=== PATIENT | female | born 1975 | race American Indian/Alaskan Native ===

== ENCOUNTER 2017-07-18 00:21 | Emergency (ER) | payer MEDICARE ==
[2017-07-18 00:48] VITALS: BP 106/55
--- NOTE | 2017-07-18 03:27 | Emergency Department Report ---
ED Upper Extremity Inj HPI - General Chief Complaint: Extremity Injury, Upper Stated Complaint: RT SHOULDER PAIN Time Seen by Provider: 07/18/17 02:52 Source: patient Mode of arrival: Ambulatory Limitations: No Limitations - History of Present Illness Initial Comments: pt patient is a 42-year-old -[place] Henry shabazz who presents with complaint of right shoulder pain 5 days as to do the same thing at work and acute strain him a shoulder patient denies fall injury of trauma no swelling weakness or paralysis no numbness pain described as 5/10 aching pain is exacerbated by movement pain is relieved by rest there are no other symptoms. - Related Data Previous Rx's Medication Instructions Recorded Last Taken Type Cyclobenzaprine [Flexeril] 10 mg PO BID PRN #20 tablet 07/18/17 Unknown Rx Menthol/Camphor [Milton Lopez 1 applicator TP BID PRN #1 tube 07/18/17 Unknown Rx Ointment] Naproxen 500 mg PO BID PRN #30 tablet 07/18/17 Unknown Rx Allergies Allergy/AdvReac Type Severity Reaction Status Date / Time No Known Allergies Allergy Verified 07/18/17 00:34 ED Review of Systems ROS: Stated complaint: RT SHOULDER PAIN Other details as noted in HPI Constitutional: denies: chills, fever Eyes: denies: eye pain, eye discharge, vision change ENT: denies: ear pain, throat pain Respiratory: denies: cough, shortness of breath, wheezing Cardiovascular: denies: chest pain, palpitations Endocrine: no symptoms reported Gastrointestinal: denies: abdominal pain, nausea, diarrhea Genitourinary: denies: urgency, dysuria, discharge Musculoskeletal: arthralgia, myalgia. denies: back pain, joint swelling Skin: denies: rash, lesions Neurological: denies: headache, weakness, paresthesias Psychiatric: denies: anxiety, depression Hematological/Lymphatic: as per HPI ED Past Medical Hx - Past Medical History Previous Medical History?: Yes Hx Asthma: Yes - Surgical History Past Surgical History?: Yes Additional Surgical History: C-Sec x 3 - Social History Smoking Status: Never Smoker Substance Use Type: None - Medications Home Medications: Home Medications Medication Instructions Recorded Confirmed Last Taken Type Cyclobenzaprine [Flexeril] 10 mg PO BID PRN #20 tablet 07/18/17 Unknown Rx Menthol/Camphor [Milton Lopez 1 applicator TP BID PRN #1 tube 07/18/17 Unknown Rx Ointment] Naproxen 500 mg PO BID PRN #30 tablet 07/18/17 Unknown Rx ED Physical Exam - General Limitations: No Limitations General appearance: alert, in no apparent distress - Head Head exam: Present: atraumatic, normocephalic - Eye Eye exam: Present: normal appearance - ENT ENT exam: Present: mucous membranes moist - Neck Neck exam: Present: normal inspection - Respiratory Respiratory exam: Present: normal lung sounds bilaterally. Absent: respiratory distress - Cardiovascular Cardiovascular Exam: Present: regular rate, normal rhythm. Absent: systolic murmur, diastolic murmur, rubs, gallop - GI/Abdominal GI/Abdominal exam: Present: soft, normal bowel sounds - Rectal Rectal exam: Present: deferred - Extremities Exam Extremities exam: Present: normal inspection, full ROM, tenderness (right posterior lateral shoulder muscular tenderness ), normal capillary refill, calf tenderness. Absent: joint swelling - Expanded Upper Extremity Exam Right Shoulder Exam: Present: normal inspection, full ROM, tenderness (right posterior lateral tenderness to deep palpaton rom intact open can and shoulder drop rad pulses +2, bilat piping drafter equal 5/5 bilat ). Absent: swelling, abrasion, laceration, ecchymosis, deformity, crepidus, dislocation, erythema, tenderness over AC joint Upper Arm exam: Present: normal inspection, full ROM Elbow exam: Present: normal inspection, full ROM Forearm Wrist exam: Present: normal inspection, full ROM Hand Wrist exam: Present: normal inspection, full ROM Neuro motor exam: Present: wrist extension intact, thumb opposition intact, thumb IP flexion intact, thumb adduction intact, fingers 2-5 abduction intact Neurosensory exam: Present: 2-point discrimination, radial nerve intact, ulnar nerve intact, median nerve intact Vascular: Present: vascular compromise, normal capillary refill, radial pulse, brachial pulse, ulnar pulse. Absent: Pallo, pulse deficit radial art - Back Exam Back exam: Present: normal inspection, full ROM. Absent: tenderness, CVA tenderness (R), CVA tenderness (L), muscle spasm, paraspinal tenderness, vertebral tenderness - Neurological Exam Neurological exam: Present: alert, oriented X3, CN II-XII intact, normal gait, reflexes normal. Absent: motor sensory deficit - Psychiatric Psychiatric exam: Present: normal affect, normal mood - Skin Skin exam: Present: warm, dry, intact, normal color. Absent: rash ED Course Vital Signs 07/18/17 00:34 Temperature 98.8 F Pulse Rate 88 Respiratory 18 Rate Blood Pressure 106/55 [Right] O2 Sat by Pulse 100 Oximetry ED Medical Decision Making - Medical Decision Making pt patient is a 42-year-old -[place] Henry shabazz who presents with complaint of right shoulder pain 5 days as to do the same thing at work and acute strain him a shoulder patient denies fall injury of trauma no swelling weakness or paralysis no numbness pain described as 5/10 aching pain is exacerbated by movement pain is relieved by rest there are no other symptoms. exam: pt appears well nad, nontoxic shoulder exam strength 5/5 open shoulder drop intact , piping drafter equal 5/5 rom unrestricted, plan: tx for shoulder strain nsaids, muscle relaxant, tiger balm moist heat therapy, and shoulder exercises discuss same with patient , patient verbalized agreement and understanding with same. Critical care attestation.: If time is entered above; I have spent that time in minutes in the direct care of this critically ill patient, excluding procedure time. ED Disposition Clinical Impression: Right shoulder strain Qualifiers: Encounter type: initial encounter Qualified Code(s): S46.911A - Strain of unspecified muscle, fascia and tendon at shoulder and upper arm level, right arm , initial encounter Disposition: - TO HOME OR SELFCARE Is pt being admited?: No Does the pt Need Aspirin: No Condition: Good Instructions: Musculoskeletal Pain (ED) Prescriptions: Cyclobenzaprine [Flexeril] 10 mg PO BID PRN #20 tablet PRN Reason: Muscle Spasm Menthol/Camphor [Milton Lopez Ointment] 1 applicator TP BID PRN #1 tube PRN Reason: Pain Naproxen 500 mg PO BID PRN #30 tablet PRN Reason: Pain Referrals: ASAD CLARK MD [Primary Care Provider] - 3-5 Days Forms: Work/School Release Form(ED) Time of Disposition: 03:31
== END 2017-07-18 03:35 | disposition home or self-care (01) ==
LOC: ED 00:21
DX: S46.911A Strain of unspecified muscle, fascia and tendon at shoulder and upper arm level, right arm, initial encounter (principal); J45.909 Unspecified asthma, uncomplicated; X58.XXXA Exposure to other specified factors, initial encounter; Y93.89 Activity, other specified; Y92.89 Other specified places as the place of occurrence of the external cause; Y99.8 Other external cause status
CPT/HCPCS: 99282

== ENCOUNTER 2018-04-21 03:53 | Emergency (ER) | payer MEDICARE ==
[2018-04-21] MEDS ORDERED: TYLENOL ONE (05:30)
[2018-04-21] MEDS ORDERED: TYLENOL PO ONE (05:36)
[2018-04-21 06:42] LABS: Basophils # (Auto) 0.1 K/mm3 (0.0-0.1); Basophils % (Auto) 0.9 % (0.0-1.8); Eosinophils # (Auto) 0.1 K/mm3 (0.0-0.4); Hematocrit 27.7 % (30.3-42.9); Hemoglobin 8.3 gm/dl (10.1-14.3); Lymphocytes # (Auto) 1.6 K/mm3 (1.2-5.4); Lymphocytes % (Auto) 26.4 % (13.4-35.0); Mean Corpuscular HGB Conc 30 % (30-34); Monocytes # (Auto) 0.4 K/mm3 (0.0-0.8); Monocytes % (Auto) 5.8 % (0.0-7.3); Platelet Count 230 K/mm3 (140-440); Red Blood Count 4.01 M/mm3 (3.65-5.03); Red Cell Distribution Width 18.3 % (13.2-15.2)
[2018-04-21 06:45] LABS: Mean Corpuscular Hemoglobin 21 pg (28-32); Mean Corpuscular Volume 69 fl (79-97)
[2018-04-21] MEDS ORDERED: TORADOL IM ONE (10:29)
[2018-04-21 11:52] LABS: Bilirubin,Urine NEG (Negative); Blood,Urine MOD (Negative); Color,Urine Yellow (Yellow); Mucus,Urine FEW /HPF; Protein,Urine <15 mg/dL mg/dL (Negative); Urobilinogen,Urine < 2.0 mg/dL (<2.0)
--- NOTE | 2018-04-21 12:03 | Ultrasound Report ---
FINAL REPORT EXAM: US TRANSVAGINAL HISTORY: vaginal bleeding with abdominal pain COMPARISON: None. TECHNIQUE: Trans-vaginal imaging of the pelvis was performed. FINDINGS: The uterus measures 11.2 x 4.6 x 5.5 centimeters and is anteverted. There is normal echogenicity of the uterine myometrium. The endometrium measures 1.5 centimeters in thickness. There is a small amount of fluid within the endometrium and the cervix. The right ovary measures 2 x 1.5 x 1.3 centimeters and is normal in morphology. The left ovary is not visualized. No free fluid. IMPRESSION: Small amount of fluid within the endometrium. Nonvisualization of the left ovary. Otherwise normal pelvic ultrasound.
--- NOTE | 2018-04-21 12:04 | Ultrasound Report ---
FINAL REPORT EXAM: US PELVIC COMPLETE HISTORY: vaginal bleeding with abdominal pain COMPARISON: None. TECHNIQUE: Transabdominal imaging of the pelvis was performed. FINDINGS: The uterus measures 11.2 x 4.6 x 5.5 centimeters and is anteverted. There is normal echogenicity of the uterine myometrium. The endometrium measures 1.5 centimeters in thickness. There is a small amount of fluid within the endometrium and the cervix. The right ovary measures 2 x 1.5 x 1.3 centimeters and is normal in morphology. The left ovary is not visualized. No free fluid. IMPRESSION: Small amount of fluid within the endometrium. Nonvisualization of the left ovary. Otherwise normal pelvic ultrasound.
--- NOTE | 2018-04-21 12:19 | Emergency Department Report ---
HPI - General Chief Complaint: Vaginal Bleeding Time Seen by Provider: 04/21/18 09:48 - HPI HPI: This is a 42-year-old female here for that she had positive times and she is 12 weeks and she is out of vaginal bleeding and abdominal pain that started at midnight. She said she is use 1 para patent. Pain is located to her pelvic area tenderness attending cramping. No medication taken. Pain is intermittent. 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 Last menstrual period is 02/09/2018. Denies any fever or chills. Denies any vaginal bleeding or back pain. Denies any urinary burning, frequency or urgency. ED Past Medical Hx - Past Medical History Previous Medical History?: Yes Hx Asthma: Yes Additional medical history: Anemia - Surgical History Past Surgical History?: Yes Additional Surgical History: C-Sec x 3 - Family History Family history: hypertension - Social History Smoking Status: Never Smoker Substance Use Type: None - Medications Home Medications: Home Medications Medication Instructions Recorded Confirmed Last Taken Type Cyclobenzaprine [Flexeril] 10 mg PO BID PRN #20 tablet 07/18/17 Unknown Rx Menthol/Camphor [[employer] 1 applicator TP BID PRN #1 tube 07/18/17 Unknown Rx Ointment] Naproxen 500 mg PO BID PRN #30 tablet 07/18/17 Unknown Rx Docusate Sodium [Colace] 100 mg PO BID 30 Days #60 capsule 04/21/18 Unknown Rx Ferrous Sulfate [Feosol 325 MG tab] 325 mg PO BID 30 Days #60 tablet 04/21/18 Unknown Rx ED Review of Systems ROS: Stated complaint: <12 WEEK PREG SPOTTING Other details as noted in HPI Constitutional: denies: chills, fever Eyes: denies: eye pain, eye discharge, vision change Respiratory: denies: cough, shortness of breath, SOB with exertion, SOB at rest , stridor, wheezing Cardiovascular: denies: chest pain, palpitations, dyspnea on exertion, edema, syncope Gastrointestinal: denies: abdominal pain, nausea, vomiting, diarrhea, hematemesis, hematochezia Genitourinary: other (vaginal bleeding and). denies: urgency, dysuria, frequency, hematuria, discharge, abnormal menses, dyspareunia Musculoskeletal: denies: back pain, joint swelling, arthralgia Skin: denies: rash, lesions Neurological: denies: headache, weakness, abnormal gait, vertigo Physical Exam - Physical Exam Vital Signs: Vital Signs 04/21/18 05:28 Temperature 98.1 F Pulse Rate 74 Respiratory 18 Rate Blood Pressure 112/64 O2 Sat by Pulse 100 Oximetry General: 42-year-old female well-nourished well-developed in no acute distress. Physical Exam: Head: Normocephalic atraumatic. Scalp examination and normal. Nontender to palpate. No abrasion, contusion or hematoma noted. 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 No use of accessory muscles. No chest wall tenderness CV: S1, S2. Regular rate rhythm negative murmur. Eyes: Bilateral pupils equal and reactive to light, conjunctival injection or icterus. : External vaginal area within normal limits, small amount of blood noted in pad. No clots noted. Abdomen: Soft, nontender the palpation in all quadrants: No guarding or rebound tenderness. No CVA tenderness. No bruit, no hernia or mass. Skin: Clean dry and intact, no rash or lesions. Extremity: No cce. + 2 pulses in all extremities, no neurovascular compromise.No laceration, bruises then or contusion noted to extremities. Negative Homans signs bilaterally. No palpable cord bilateral lower extremity. Musculoskeletal: Range of motion in all extremities, no joint crepitus, erythema or effusion. Skin: Clean dry and intact, no rashes no lesions Mood: Normal mood and behavior ED Course Vital Signs 04/21/18 05:28 Temperature 98.1 F Pulse Rate 74 Respiratory 18 Rate Blood Pressure 112/64 O2 Sat by Pulse 100 Oximetry - Reevaluation(s) Reevaluation #1: 04/21/18 12:31 Patient stable and received Tylenol in triage area 975 mg in triage area which did not relieve her pain. She received naproxen 500 mg by mouth in ED which relieved her pain. She is feeling better. ED Medical Decision Making - Lab Data Result diagrams: 04/21/18 05:46 Lab Results 04/21/18 04/21/18 04/21/18 Range/Units 05:46 05:46 05:47 WBC 6.2 (4.5-11.0) K/mm3 RBC 4.01 (3.65-5.03) M/mm3 Hgb 8.3 L (10.1-14.3) gm/dl Hct 27.7 L (30.3-42.9) % MCV 69 L (79-97) fl MCH 21 L (28-32) pg MCHC 30 (30-34) % RDW 18.3 H (13.2-15.2) % Plt Count 230 (140-440) K/mm3 Lymph % (Auto) 26.4 (13.4-35.0) % Bucks % (Auto) 5.8 (0.0-7.3) % Eos % (Auto) 1.0 (0.0-4.3) % Baso % (Auto) 0.9 (0.0-1.8) % Lymph # 1.6 (1.2-5.4) K/mm3 Bucks # 0.4 (0.0-0.8) K/mm3 Eos # 0.1 (0.0-0.4) K/mm3 Baso # 0.1 (0.0-0.1) K/mm3 Seg Neutrophils % 65.9 (40.0-70.0) % Seg Neutrophils # 4.1 (1.8-7.7) K/mm3 HCG, Quant < 2 (0-4) mIU/mL Urine Color (Yellow) Urine Turbidity (Clear) Urine pH (5.0-7.0) Ur Specific [place] (1.003-1.030) Urine Protein (Negative) mg/dL Urine Glucose (UA) (Negative) mg/dL Urine Ketones (Negative) mg/dL Urine Blood (Negative) Urine Nitrite (Negative) Urine Bilirubin (Negative) Urine Urobilinogen (<2.0) mg/dL Ur Leukocyte Esterase (Negative) Urine WBC (Auto) (0.0-6.0) /HPF Urine RBC (Auto) (0.0-6.0) /HPF U Epithel Cells (Auto) (0-13.0) /HPF Urine Mucus /HPF Blood Type AB POSITIVE Antibody Screen Negative 04/21/18 Range/Units 11:25 WBC (4.5-11.0) K/mm3 RBC (3.65-5.03) M/mm3 Hgb (10.1-14.3) gm/dl Hct (30.3-42.9) % MCV (79-97) fl MCH (28-32) pg MCHC (30-34) % RDW (13.2-15.2) % Plt Count (140-440) K/mm3 Lymph % (Auto) (13.4-35.0) % Bucks % (Auto) (0.0-7.3) % Eos % (Auto) (0.0-4.3) % Baso % (Auto) (0.0-1.8) % Lymph # (1.2-5.4) K/mm3 [place]ucks # (0.0-0.8) K/mm3 Eos # (0.0-0.4) K/mm3 Baso # (0.0-0.1) K/mm3 Seg Neutrophils % (40.0-70.0) % Seg Neutrophils # (1.8-7.7) K/mm3 HCG, Quant (0-4) mIU/mL Urine Color Yellow (Yellow) Urine Turbidity Clear (Clear) Urine pH 5.0 (5.0-7.0) Ur Specific [place] 1.018 (1.003-1.030) Urine Protein <15 mg/dl (Negative) mg/dL Urine Glucose (UA) Neg (Negative) mg/dL Urine Ketones Neg (Negative) mg/dL Urine Blood Mod (Negative) Urine Nitrite Neg (Negative) Urine Bilirubin Neg (Negative) Urine Urobilinogen < 2.0 (<2.0) mg/dL Ur Leukocyte Esterase Neg (Negative) Urine WBC (Auto) 2.0 (0.0-6.0) /HPF Urine RBC (Auto) 32.0 (0.0-6.0) /HPF U Epithel Cells (Auto) 1.0 (0-13.0) /HPF Urine Mucus Few /HPF Blood Type Antibody Screen - Radiology Data Ultrasound transvaginal and transabdominal pelvis dictated by radiologist and report reviewed by myself. See detailed report below. Patient: JULISSA OLVERA MR#: [id number] : 1975 Acct:[id number] Age/Sex: 42 / F ADM Date: 04/21/18 Loc: ED Attending Dr: Ordering Physician: BRIJESH ALCANTAR Date of Service: 04/21/18 Procedure(s): US transvaginal Accession Number(s): [id number] cc: BRIJESH ALCANTAR FINAL REPORT EXAM: US TRANSVAGINAL HISTORY: vaginal bleeding with abdominal pain COMPARISON: None. TECHNIQUE: Trans-vaginal imaging of the pelvis was performed. FINDINGS: The uterus measures 11.2 x 4.6 x 5.5 centimeters and is anteverted. There is normal echogenicity of the uterine myometrium. The endometrium measures 1.5 centimeters in thickness. There is a small amount of fluid within the endometrium and the cervix. The right ovary measures 2 x 1.5 x 1.3 centimeters and is normal in morphology. The left ovary is not visualized. No free fluid. IMPRESSION: Small amount of fluid within the endometrium. Nonvisualization of the left ovary. Otherwise normal pelvic ultrasound. Transcribed By: ERIC Dictated By: MADELINE THOMAS MD Electronically Authenticated By: MADELINE THOMAS MD Signed Date/Time: 04/21/181201 DD/ 01 TD/TT: 04/21/181201 Patient: JULISSA OLVERA MR#: [id number] : 1975 Acct:[id number] Age/Sex: 42 / F ADM Date: 04/21/18 Loc: ED Attending Dr: Ordering Physician: BRIJESH ALCANTAR Date of Service: 04/21/18 Procedure(s): US pelvic complete Accession Number(s): [id number] cc: BRIJESH ALCANTAR FINAL REPORT EXAM: US PELVIC COMPLETE HISTORY: vaginal bleeding with abdominal pain COMPARISON: None. TECHNIQUE: Transabdominal imaging of the pelvis was performed. FINDINGS: The uterus measures 11.2 x 4.6 x 5.5 centimeters and is anteverted. There is normal echogenicity of the uterine myometrium. The endometrium measures 1.5 centimeters in thickness. There is a small amount of fluid within the endometrium and the cervix. The right ovary measures 2 x 1.5 x 1.3 centimeters and is normal in morphology. The left ovary is not visualized. No free fluid. IMPRESSION: Small amount of fluid within the endometrium. Nonvisualization of the left ovary. Otherwise normal pelvic ultrasound. Transcribed By: ERIC Dictated By: MADELINE THOMAS MD Electronically Authenticated By: MADELINE THOMAS MD Signed Date/Time: 04/21/181202 DD/ 02 TD/TT: 04/21/181202 - Medical Decision Making This is a 42-year-old female here for abdominal pain and vaginal bleeding and reported that she is 12 weeks and here for evaluation. Diagnostics: Ultrasound transvaginal non-OB and transient abdominal pelvic revealed normal exam except left ovary is not visualized in patient with history of removal of left ovary. Per patient Laboratory: CBC shows anemia which patient says she is anemic, CMP is stable, urinalysis stable except moderate amount of blood suspect from vaginal bleeding and hCG quantitative less than 2. Assessment/plan 1: Dysfunctional Functional uterine bleed-referral to METAL STAMPER. Quant hCG is less than 2 2: Dysmenorrhea-referral to the METAL STAMPER and placed on naproxen. She given naproxen 500 mg in the emergency room which relieved her pain. 3: Anemia suspect from dysfunctional uterine bleeding and over time-referral to METAL STAMPER and placed on iron tablets with Colace I Discussed the patient her diagnosis, treatment plan and management medication and need to follow up with her METAL STAMPER and primary care physician. She voiced understanding. Patient says she does have METAL STAMPER. I discussed with her to follow-up in 2-3 days and if bleeding continues or worsens or return to the emergency room otherwise take naproxen. Patient left stable she is afebrile and her pain is controlled discharge from emergency room with prescription for naproxen - Differential Diagnosis threatened miscarriage, malignancy, spontaneous , Fibroid, UTI, DUB Critical care attestation.: If time is entered above; I have spent that time in minutes in the direct care of this critically ill patient, excluding procedure time. ED Disposition Clinical Impression: Dysfunctional uterine bleeding, Dysmenorrhea Anemia Qualifiers: Anemia type: unspecified type Qualified Code(s): D64.9 - Anemia, unspecified Disposition: DC-01 TO HOME OR SELFCARE Is pt being admited?: No Does the pt Need Aspirin: No Condition: Stable Instructions: Dysmenorrhea (ED), Dysfunctional Uterine Bleeding (ED), Anemia ( ED) Additional Instructions: Please refer to METAL STAMPER as discussed. Follow up in 2 days [place] primary care physician in 2 days Take naproxen for pain Ferrous sulfate iron pills for anemia twice daily and make sure you increase her fiber and water intake and also take stool softener with this medication as it causes constipation If bleeding and increase and you are passing clots please return to the emergency room otherwise follow-up with [facility]AL ST[facility]PER Prescriptions: Docusate Sodium [Colace] 100 mg PO BID 30 Days #60 capsule Ferrous Sulfate [Feosol 325 MG tab] 325 mg PO BID 30 Days #60 tablet Referrals: GINNY LOUISE MD [Primary Care Provider] - 04/23/18 ANNY JUNG MD [Staff Physician] - 04/23/18 [facility] [Outside] - 04/23/18 Forms: Work/School Release Form(ED)
[2018-04-21 13:08] VITALS: BP 118/71
[2018-04-21] MEDS ORDERED: NAPROSYN PO ONE (13:42)
== END 2018-04-21 13:06 | disposition home or self-care (01) ==
LOC: ED 03:53
DX: O46.91 Antepartum hemorrhage, unspecified, first trimester (principal); D64.9 Anemia, unspecified; N94.6 Dysmenorrhea, unspecified; J45.909 Unspecified asthma, uncomplicated; Z3A.12 12 weeks gestation of pregnancy
CPT/HCPCS: 36415; 76830; 76856; 81001; 84702; 85025; 86850; 86900; 86901; 96372; 99284; J1885